=== PATIENT | male | born 1950 | race Caucasian/White ===

== ENCOUNTER 2024-03-08 15:32 | Emergency (ER) | payer OTHER, SELFPAY ==
[2024-03-08 15:46] VITALS: BP 192/111
[2024-03-08 16:23] LABS: % Basophils 0.6 % (0-2); % Eosinophils 0.3 % (0-6); % Immature Granulocytes 0.4 % (0-0.5); % Monocytes 3.8 % (1.7-9.3); % Neutrophils 79.9 % (42.2-75.2); Absolute Basophils 0.1 10^3/uL (0-0.2); Absolute Immature Granulocytes 0.1 10^3/uL (0-0.05); Absolute Lymphocytes 2.1 10^3/uL (1.2-3.4); Absolute Monocytes 0.5 10^3/uL (0.1-0.6); Absolute Neutrophils 11.1 10^3/uL (1.4-6.5); Hematocrit 47.1 % (39.0-52.0); Hemoglobin 16.6 g/dL (13.0-18.0); Mean Corp Hgb Conc. 35.2 g/dL (33.0-37.0); Mean Corpuscular Hgb 30.3 pg (27.0-31.0); Mean Corpuscular Volume 86.1 fL (80.0-94.0); Mean Platelet Volume 8.9 fL (7.4-10.4); Nucleated Red Blood Cells % 0 % (-); Platelet Count 182 10^3/uL (130-400); Red Blood Cell Count 5.47 10^6/uL (4.70-6.10); Red Cell Dist. Width 13.9 % (11.5-14.5); White Blood Cell Count 13.8 10^3/uL (4.8-10.8)
[2024-03-08 16:50] LABS: ALT (SGPT) 20 U/L (0-50); AST (SGOT) 27 U/L (17-59); Albumin 4.7 g/dl (3.5-5.0); Alkaline Phosphatase 82 U/L (38-126); Blood Urea Nitrogen 19 mg/dl (9-20); Calcium 10.4 mg/dl (8.4-10.2); Carbon Dioxide 22 mmol/L (22-30); Chloride 105 mmol/L (98-107); Glucose 117 mg/dl (70-99); Potassium 4.2 mmol/L (3.5-5.1); Sodium 140 mmol/L (135-145); Total Protein 7.1 g/dl (6.3-8.2); eGFR > 60.00
--- NOTE | 2024-03-08 17:17 | ED.GENMED ---
History of Present Illness
General
Chief Complaint: Flank Pain
Source: patient
Exam Limitations: none
Time Seen by Provider: 03/08/24 16:48
Nursing documentation reviewed up to this point in time: agreed with
Travel History
Have you had any contact with someone who has COVID-19?: No
Do you have any symptoms of coronavirus? Fever > 100 degrees, chills, cough, shortness of breath, sore throat, loss of taste or smell, muscle aches, or headache?: No
History of Present Illness
History of Present Illness:
Patient is a 73-year-old male with history of kidney stones presenting for evaluation of acute onset right flank pain. Patient states symptoms started today around 2 PM with sharp pain in his right flank with radiation to his right groin. He was
seen by his primary care physician who was suspicious of a kidney stone. They did perform urinalysis in the office which demonstrated hematuria. He was referred to the emergency department for further evaluation. Patient states that while on his
drive over here the pain seemed to dissipate and is right now denies any discomfort.
Patient does endorse some mild intermittent right flank/low back pain over the past few days which she initially attributed to a muscle strain. He has had a few episodes of diarrhea over the past few days. Patient denies any fever, chills,
dysuria, nausea, vomiting.
Patient does have a history of a kidney stone many years ago that he was able to pass on his own.
Past History
Past History
ED Past Medical History: Other (dvt)
ED Past Surgical History: Tonsilectomy
Social History
Tobacco: Non-smoker
Alcohol: Occasional
Drug: None
Personal:
Living: with family
Employment: Employed
Family History
Family History: Other (son w/ dvt w/ trauma)
Phy Exam
Physical Exam
Physical Exam:
General: In no apparent distress, nontoxic appearing
Vitals: Hypertensive, otherwise vital signs stable; afebrile
HEENT: Atraumatic, normocephalic; pupils equal round and reactive light bilaterally, protecting airway
Neck: appears supple, no JVD
CV: Regular rate and rhythm, heart sounds normal, no evidence of cyanosis
Resp: No evidence of respiratory distress, lungs clear bilaterally
Abd: Soft, nontender in all 4 quadrants, nondistended; no CVA tenderness
Extremities: No deformities
Neuro: alert and oriented x 3; grossly intact
Psych: Normal affect
Skin: Intact, no rashes
Course
Orders/Labs/Results
Orders:
Orders
03/08/24 16:06
CBC/With Diff [Complete Blood Count/With Diff] Urgent
CMP [Comprehensive Metabolic Panel] Urgent
03/08/24 17:12
CT Abd/pel Without Iv Or Oral Urgent
Comment:
Reason For Exam: right flank pain, hematuria
03/08/24 17:42
Urinalysis Reflex To Culture Urgent
Date Specimen was Collected: 03/08/24
Time Specimen was Collected: 17:27
Urine Microscopic Reflex Cult Urgent
Abnormal Lab Results
03/08/24 03/08/24
16:06 17:42
WBC 13.8 H 10^3/uL
(4.8-10.8)
Abs Immat Gran (auto) 0.1 H 10^3/uL
(0-0.05)
Absolute Neuts (auto) 11.1 H 10^3/uL
(1.4-6.5)
Neutrophils % 79.9 H %
(42.2-75.2)
Lymphocytes % 15.0 L %
(20.5-51.1)
Glucose 117 H mg/dl
(70-99)
Calcium 10.4 H mg/dl
(8.4-10.2)
Urine Ketones 2+ A
(Negative)
Ur Occult Blood Reflex 3+ A
(Negative)
Urine RBC 50-60 A /HPF
(0-2)
Urine Bacteria (Reflex) Few A
(Negative)
03/08/24 16:06
03/08/24 16:06
Vital Signs
Initial and Last Documented VS:
Initial Vital Signs
Temp Pulse Resp BP Pulse Ox
97.8 F 74 17 192/111 97
03/08/24 15:46 03/08/24 15:46 03/08/24 15:46 03/08/24 15:46 03/08/24 15:46
Last Documented Vital Signs
Temp Pulse Resp BP Pulse Ox
97.8 F 92 18 167/95 95
03/08/24 15:46 03/08/24 18:27 03/08/24 18:27 03/08/24 18:27 03/08/24 18:27
MDM/Problems Addressed
Differential Diagnosis Includes:
Nephrolithiasis, pyelonephritis, cystitis, constipation, hernia, appendicitis, colitis
MDM/Problems Addressed:
Patient is 73-year-old male presenting for evaluation of acute onset right flank pain earlier today. Sent by PCP to rule out kidney stone. No fever, chills, dysuria. Patient asymptomatic at this time�reports pain resolved while driving over.
Patient is hypertensive, otherwise vital signs stable. He is afebrile. Exam as documented above. Labs obtained in triage show mild leukocytosis to 13.8, otherwise no clinically significant abnormalities. Will check urinalysis, CT scan here.
Based on patient's improvement in pain�it is possible that he may have passed stone. He denies any pain at this time. Will reassess. Given completely benign abdominal exam and absence of nausea, vomiting�feel appendicitis is very unlikely.
Urinalysis positive for blood. Culture will be sent and is pending.
CT shows 3 mm obstructing stone at right distal ureter. Suspect that this was causing patient's symptoms. Kidney function is normal. Given size and location I do believe patient can pass this on his own at home. Will provide Flomax, pain
control, urology follow-up as needed. Urine strainer provided to patient as well. Patient comfortable with this plan. Return precautions discussed. Blood pressure did decrease to 160s over 90s prior to discharge.
Reviewed findings of CT scan with patient, at length. He is aware of AAA and to have this closely monitored by primary care provider.
Chronic conditions affecting care:
History of kidney stone
Acute Exacerbation and/or Progression of Chronic Illness:
Ureterolithiasis
*Radiology
Radiology exam reviewed: preliminary read by ED provider and radiology read reviewed
*Pulse Oximetry
Patient hypoxic: no
*EKG
Interpreted by ED Provider?: NA
*Memorial Designer Interpretation
Rate: Memorial Designer- N/A
*Critical Care Note
Total Time (30-74mins, 75-104mins- exclusive of procedures): Not Applicable
ED Attending Note
-
Portions of this chart may have been created with voice recognition software.� Occasional wrong word or��sound alike� substitutions may have occurred due to the inherent limitations of voice recognition software.
Discharge Plan
Departure
Patient Disposition: Home (Routine Discharge)
Date of Disposition: 03/08/24
Time of Disposition: 18:13
Patient with high blood pressure during this ER visit?: Yes
Condition: Good
Covid-19: Not Applicable
Discharge Problem:
Ureterolithiasis
Instructions: Kidney Stones (DC), BLOOD PRESSURE
Prescriptions:
New
tamsulosin [Flomax] 0.4 mg capsule
0.4 mg PO DAILY Qty: 7 0RF
oxycodone 5 mg tablet
5 mg PO Q6H Qty: 7 0RF
No Action
apixaban [Eliquis] 5 MG tablet
10 mg PO BID Qty: 28 0RF
Rx Instructions:
Take 2 tablets of the 5mg (10 mg) twice a day for the next week
Referrals:
Julien Golden MD [Active] - As needed
UNKNOWN - PT DOES,NOT KNOW [Unknown Provider] -
Activity Restrictions/Additional Instructions:
- Return to the emergency department any high fevers, intractable pain, severe abdominal or flank pain, intractable nausea/vomiting, signs of severe dehydration, worsening current symptoms, or any other concerns
-Prescriptions have been sent to your pharmacy. You should take ibuprofen/Advil as needed for mild discomfort. You can take codon as needed for severe pain. This may cause drowsiness and you should not take prior to driving. You should take the
Flomax daily for the next week or until you pass stone
-Is important stay well-hydrated. You should continue to strain your urine until you pass stone.
-As discussed�you need to follow-up with your primary care provider to review your CT results. You should ensure that the abdominal aortic aneurysm seen on your CT scan is continuously monitored
-Follow-up with urology for further evaluation/managment
Interventions
Interventions:
*Risk Screen - Suicide Last Done: 03/08/24 15:46
*General Assessment Last Done: 03/08/24 15:46
*Neglect/Abuse Screening Last Done: 03/08/24 15:46
*ED COVID-19 Vaccine History Last Done: 03/08/24 15:46
WJ-Sazdtq-Dacclzwqyk Assessment Last Done: 03/08/24 18:27
ED-Male Genitourinary Assessment Last Done: 03/08/24 18:27
Discharge Date and Time
Print Language: CAMEROONIAN
[2024-03-08 18:06] LABS: Urine Albumin Negative (Neg - Trace); Urine Bilirubin Negative (Negative); Urine Character Clear (Clear); Urine Color Yellow; Urine Glucose Negative (Negative); Urine Ketone 2+ (Negative); Urine Leukocyte Negative (Negative); Urine Nitrite Negative (Negative); Urine Occult Blood 3+ (Negative); Urine Urobilinogen Negative (Neg - 1+)
[2024-03-08 18:23] LABS: Urine Calcium Oxalate Crystals Present
[2024-03-08 18:24] LABS: Urine Uric Acid Crystals Present
[2024-03-08 18:26] LABS: Urine Red Blood Cell 50-60 /HPF (0-2)
[2024-03-08 18:27] VITALS: BP 167/95
[2024-03-08 18:27] LABS: Urine Bacteria Few (Negative); Urine Mucus Few; Urine White Cell 0-2 /HPF (0-5)
== END 2024-03-08 18:37 | disposition home or self-care (01) ==
LOC: EMR 15:32
PROVIDERS: Emergency Medicine; EMERGENCY PHYSICIAN Emergency Medicine; FAMILY PHYSICIAN Family Medicine
DX: N13.6 Pyonephrosis (principal); Z87.442 Personal history of urinary calculi
CPT/HCPCS: 99284; 74176; 80053; 81003; 81015; 85025

== ENCOUNTER → 2024-04-25 09:56 | Outpatient (REF) | payer OTHER, SELFPAY | LOC: HWRAD 09:56 | PROVIDERS: ATTENDING PHYSICIAN Specialist; FAMILY PHYSICIAN Family Medicine | DX: N20.0 Calculus of kidney (principal); N20.1 Calculus of ureter | CPT/HCPCS: 74018 ==

== ENCOUNTER → 2024-10-31 14:37 | Outpatient (REF) | payer OTHER, SELFPAY | LOC: RAD 14:37 | PROVIDERS: ATTENDING PHYSICIAN Family Medicine | DX: M79.661 Pain in right lower leg (principal) | CPT/HCPCS: 93971 ==

== ENCOUNTER 2024-11-01 18:12 | Inpatient (IN) | payer OTHER, SELFPAY ==
[2024-11-01] VITALS (9 sets, daily range): BP systolic 109–152; BP diastolic 71–99; BMI 26.6
--- NOTE | 2024-11-01 13:45 | EDRN ---
Received patient on stretcher. Patient stated that he was diagnosed yesterday with a DVT in his right leg and was started on Eliquis. Patient with c/o SOB this morning. Denies c/o chest pain.
[2024-11-01 14:10] LABS: % Basophils 0.9 % (0-2); % Immature Granulocytes 0.3 % (0-0.5); % Lymphocytes 29.3 % (20.5-51.1); % Monocytes 6.1 % (1.7-9.3); % Neutrophils 61.4 % (42.2-75.2); Absolute Basophils 0.1 10^3/uL (0-0.2); Absolute Eosinophils 0.1 10^3/uL (0-0.7); Absolute Monocytes 0.4 10^3/uL (0.1-0.6); Absolute Neutrophils 4.3 10^3/uL (1.4-6.5); Hematocrit 47.4 % (39.0-52.0); Hemoglobin 16.1 g/dL (13.0-18.0); Mean Corpuscular Hgb 30.5 pg (27.0-31.0); Mean Corpuscular Volume 89.8 fL (80.0-94.0); Nucleated Red Blood Cells % 0 % (-); Platelet Count 226 10^3/uL (130-400); Red Blood Cell Count 5.28 10^6/uL (4.70-6.10); Red Cell Dist. Width 13.1 % (11.5-14.5); White Blood Cell Count 6.9 10^3/uL (4.8-10.8)
[2024-11-01 14:34] LABS: Blood Urea Nitrogen 19 mg/dl (9-20); Glucose 100 mg/dl (70-99); Sodium 141 mmol/L (135-145); eGFR > 60.00
[2024-11-01 14:35] LABS: ALT (SGPT) 16 U/L (0-50); AST (SGOT) 26 U/L (17-59); Albumin 4.3 g/dl (3.5-5.0); Alkaline Phosphatase 70 U/L (38-126); Calcium 9.4 mg/dl (8.4-10.2); Carbon Dioxide 24 mmol/L (22-30); Chloride 108 mmol/L (98-107); Potassium 4.4 mmol/L (3.5-5.1); Total Bilirubin 0.7 mg/dl (0.2-1.3); Total Protein 6.7 g/dl (6.3-8.2)
--- NOTE | 2024-11-01 14:35 | ED.GENMED ---
History of Present Illness
General
Chief Complaint: Breathing Problem
Source: patient
Exam Limitations: none
Time Seen by Provider: 11/01/24 13:24
Nursing documentation reviewed up to this point in time: agreed with
History of Present Illness
History of Present Illness:
pt is a 74 y/o M
remote DVT provoked after an injury/immobiolzation
had covid a few weeks ago and then got swelling to RLE and yesterday had outpatient US showing nonocclusive thrombus in R common feb vein to R posterior tibial veins
syas miranda the has also had some intermittent sob the past week as well
he actually feels better today than other days
no chest pain, LALA, syncope, vomiting, fever
pt's pcp started eliquis yesterday and pt has had 3 doses
no color change tothe leg, no numbness/tingling/weakness, cold foot
Past History
Past History
ED Past Medical History: Other (dvt)
ED Past Surgical History: Tonsilectomy
Social History
Tobacco: Non-smoker
Alcohol: Occasional
Drug: None
Personal:
Living: with family
Employment: Employed
Family History
Family History: Other (son w/ dvt w/ trauma)
Review of Systems
Review of Systems
Allergies reviewed?: Yes
All Other Systems: Not applicable
Phy Exam
Physical Exam
Physical Exam:
GENERAL: Alert , in no apparent distress
EYE: pupils equal and reactive
NECK: Supple
ENT: o/p clr, mmm.
CARDIAC: Regular rate and rhythm .no murmur
LUNGS: Clear breath sounds bilaterally, no acute respiratory distress, no wheezes/rales/rhonchi
ABDOMEN: Soft, without focal tenderness, no r/g, no cvat, normal bowel sounds
NEUROLOGICAL: Alert and oriented, no focal neuro deficits
SKIN: Warm and dry, skin intact.
MUSCULOSKELETAL: mod RLE edema nontender, normal pulse normal temperature, well perfused.
PSYCH: Normal and appropriate interaction.
Scores
Heart Failure Risk
Heart Failure Risk Score: Not Applicable
Course
Orders/Labs/Results
Orders:
Orders
11/01/24 13:46
Electrocardiogram (*1) Stat
Reason for Study: Other
Other Reason for Exam: chest pain
CT Chest Pe Study Urgent
Comment:
Reason For Exam: R DVT yesterday; sob;
EKG- Treatment ONCE
11/01/24 13:59
Complete Blood Count/With Diff Urgent
Comprehensive Metabolic Panel Urgent
Troponin I Urgent
11/01/24 15:58
Heparin 6,800 units IV NOW STA
11/01/24 15:59
PTT Urgent
Comment: Obtain baseline before beginning heparin infusion if not already collected
Nursing to Place Non Medication Order As Directed
Physician Order: PTT 6 hours after initial start of Heparin infusion
11/01/24 16:00
Heparin 44278 Units/250 ml 25,000 units in 250 ml IV PER PROTOCOL
Weight to be used for heparin protocol in kilograms (kg):: 85.1
Protocol:: DVT/PE
PTT Goal Range to be used:: PTT 73 to 111 seconds
Order type:: Initial
INITIAL Infusion Dose (UNITS/KG/hr) & then follow protocol:: 18 units/kg/hr
Infusion Dose in UNITS/hr & then follow protocol (UNITS/hr):: 1,500
INFUSION RATE in mL/hr & then follow protocol (mL/hr):: 15
For DVT/PE algorithm, re-bolus for low PTT?: Yes
PTT less than or equal to 64 seconds:: Re-bolus 80 units/kg (max 10,000units). Increase by 300 units/hr
(+ 3mL/hr)
PTT 64.1 to 72.9 seconds:: Re-bolus 40 units/kg (max 5,000 units). Increase by 200 units/hr
(+ 2mL/hr)
PTT 73 to 111 seconds:: Target Range. No change in rate.
PTT 111.1 to 130.9 seconds:: Decrease rate by 200 units/hr (- 2 mL/hr)
PTT 131 to 199.9 seconds:: HOLD for 1 hr. Then decrease by 300 units/hr (- 3mL/hr)
PTT greater than or equal to 200 seconds:: HOLD for 2 hrs & Notify Provider. Then decrease by 300 units/hr
(- 3mL/hr)
Lab follow-up:: Each change, PTT q6h until 2 consecutive are therapeutic. Then
PTT daily.
11/01/24 16:05
Add On- LAB Urgent
Tests Added?: BNP
11/01/24 16:08
Heparin 3,400 units IV PRN PRN
Heparin 6,800 units IV PRN PRN
Abnormal Lab Results
11/01/24
13:59
Chloride 108 H mmol/L
(98-107)
Glucose 100 H mg/dl
(70-99)
11/01/24 13:59
11/01/24 13:59
Vital Signs
Initial and Last Documented VS:
Initial Vital Signs
Temp Pulse Resp BP Pulse Ox
36.4 C 86 16 152/88 97
11/01/24 12:05 11/01/24 12:05 11/01/24 12:05 11/01/24 12:05 11/01/24 12:05
Last Documented Vital Signs
Temp Pulse Resp BP Pulse Ox
36.4 C 70 17 123/87 100
11/01/24 12:05 11/01/24 15:00 11/01/24 15:00 11/01/24 15:00 11/01/24 14:00
MDM/Problems Addressed
Differential Diagnosis Includes:
PE, dvt
MDM/Problems Addressed:
room [address] ernesto negron 74 y/o M
covid a few weeks ago
1 week RLE swelling, mild sob worse with exertion
outpatient US R common fem vein dvt
on eliquis since yesterday
but sent in for PE study and has R main pulm artery PE with mild R heart strain
hemodynamically stable
trop normal
d/w pulnonary : peter; heparinize; no IR/.urgent thrombectomy because pt is stable.
admit to hospitalist
*Critical Care Note
Total Time (30-74mins, 75-104mins- exclusive of procedures): Not Applicable
ED Attending Note
-
Portions of this chart may have been created with voice recognition software.� Occasional wrong word or��sound alike� substitutions may have occurred due to the inherent limitations of voice recognition software.
Discharge Plan
Departure
Patient Disposition: Admit
Date of Disposition: 11/01/24
Time of Disposition: 15:57
Admit to: IMU
Presentation/result/management discussed w/ accepting MD/DO: Hospitalist
Covid-19: Not Applicable
Discharge Problem:
Pulmonary embolism
Prescriptions:
No Action
Eliquis 5 MG tablet
10 mg PO BID Qty: 28 0RF
Rx Instructions:
Take 2 tablets of the 5mg (10 mg) twice a day for the next week
ascorbic acid (vitamin C) [Vitamin C] 500 mg Tablet
500 mg PO DAILY
Referrals:
Janak Little MD [Family Provider] -
Interventions
Interventions:
*Risk Screen - Suicide Last Done: 11/01/24 12:05
*General Assessment Last Done: 11/01/24 13:45
*Neglect/Abuse Screening Last Done: 11/01/24 12:05
ED- Fall Risk Assessment Last Done: 11/01/24 13:45
*ED COVID-19 Vaccine History Last Done: 11/01/24 13:45
ED- Cardiac Assessment Last Done: 11/01/24 13:45
ED- Pulmonary Assessment Last Done: 11/01/24 13:45
Discharge Date and Time
Print Language: UPPER SORBIAN
[2024-11-01 14:42] LABS: Troponin I 0.018 ng/ml
[2024-11-01] MEDS: HEPARIN 6800 UNITS IV (16:20)
[2024-11-01] MEDS: HEPARIN 25000 UNITS/250 ML IV (16:21)
[2024-11-01 16:55] LABS: APTT 34.7 Sec (23.4-35.0)
--- NOTE | 2024-11-01 16:59 | HPS.HSE ---
Addendum entered and electronically signed by Pauline Tomas DO 11/01/24 19:19:
The patient is seen and examined. I have reviewed the patient with Honey, and agree with her history and physical, assessment and plan of care as per below with following additions:
The patient has a history of DVT, treated for 2 months on oral anticoagulants.
No Family history of DVT/PE that he knows about
Social hx: regional dedicated truck driver, sitting for long periods of time
VSS/AF, no hypoxia
Cards no m/r/r, RRR
Lungs CTA b/l no w/r/r
Neuro no focal deficits
Abd soft nt/nd, normal bs
Labs reviewed
CT: Positive for pulmonary emboli. Large near occlusive thrombus within the right main pulmonary artery extending into both the upper and lower lobe segmental branches. Additional filling defect noted within the proximal left lower lobe pulmonary
arteries. RV LV ratio greater than 1 suggesting right heart strain.
Echo pending
Cont Hep gtt
Currently hemodynamically stable, continue to monitor hemodynamics closely
Original Note:
Family Physician
-
Family Physician: Janak Little
Chief Complaint
-
dvt
History of Present Illness
74 y/o M with remote DVT provoked after an injury/immobilization,had covid a few weeks ago and then got swelling to RLE, sob and yesterday had outpatient US showing nonocclusive thrombus in R common feb vein to R posterior tibial veins. CT obtained
today with impression of PE. patient denied chest pain, LALA, syncope, vomiting, fever.pt's pcp started eliquis yesterday and pt has had 3 doses. denied MUNOZ, dizzy or syncope. denied abdominal pain,n,v,d. denied dysuria or hematuria.
patient was started on heparin. admitting for further management.
Medical History
Past Medical History
Past Medical History: Reports Other
Additional Past Medical History:
Left leg DVT
Colon polyps
Diverticulosis
Past Surgical History: Reports Other
Additional Past Surgical History:
Tonsillectomy
Social History
Tobacco: Non-smoker
Alcohol: Occasional
Drug: None
Personal:
Living: With Family
Family History
Family History: Not pertinent
Allergies / Home Medications
Allergies reflects when Allergies were last updated in [facility].
Home Medications with original date entered in [facility]
Allergy/Medication List:
Allergies
Allergy/AdvReac Type Severity Reaction Status Date / Time
amoxicillin Allergy Unknown Verified 08/05/22 21:14
Home Medications
apixaban 5 mg tablet (Eliquis) 10 mg (2 x 5 mg) PO BID #28 tabs 03/10/17
ascorbic acid (vitamin C) 500 mg tablet (Vitamin C) 500 mg PO DAILY 11/01/24
Review of Systems
-
Constitutional: Reports No Symptoms
EENT: Reports No Symptoms
Respiratory: Reports Trouble Breathing
Cardiac: Reports No Symptoms
Abdomen/GI: Reports No Symptoms
: Reports No Symptoms
Musculoskeletal: Reports Edema (right Le edema)
Skin: Reports No Symptoms
Neurological: Reports No Symptoms
Endocrine: Reports No Symptoms
Hematologic/Lymphatic: Reports No Symptoms
Psych: Reports No Symptoms
Physical Exam
Vital Signs
Vital Signs
Temp Pulse Resp BP Pulse Ox
97.5 F 70 17 123/87 100
11/01/24 12:05 11/01/24 15:00 11/01/24 15:00 11/01/24 15:00 11/01/24 14:00
Physical Exam
General: Well Developed, Well Nourished and No Apparent Distress
HEENT: NormoCephalic, Moist mucous membranes and Atraumatic
Respiratory: Clear
Cardiac: S1/S2 and Regular Rhythm; No Murmur or Rub
GI: Soft, Non Tender, Non Distended and Normal Bowel Sounds; No Organomegaly
Rectal: Deferred by Provider
Musculoskeletal: No Clubbing, No Cyanosis and Other (right LE edema)
Skin: No Rash
Neuro: AO x 3 and Nonfocal/grossly intact
Psych: Calm
Laboratory Results
-
11/01/24 13:59
11/01/24 13:59
Laboratory Results
Total Bilirubin 0.7 mg/dl (0.2-1.3) 11/01/24 13:59
AST 26 U/L (17-59) 11/01/24 13:59
ALT 16 U/L (0-50) 11/01/24 13:59
Alkaline Phosphatase 70 U/L (38-126) 11/01/24 13:59
Troponin I 0.018 ng/ml 11/01/24 13:59
Data Reviewed
-
CT Scan: Report Reviewed by me
Lab Data: Labs Reviewed by me
Impression/Plan
-
# Right lower extremity swelling/short of breath likely from pulmonary embolism
-IV heparin continued
-Chest CT with impression of Positive for pulmonary emboli. Large near occlusive thrombus within the right main pulmonary artery extending into both the upper and lower lobe segmental branches. Additional filling defect noted within the proximal
left lower lobe pulmonary arteries. RV LV ratio greater than 1 suggesting right heart strain.
-obtain ECHO
-pulmonary consulted
#CODE status
-full code
[2024-11-01 17:17] LABS: NT-proBNP 107 pg/ml
--- NOTE | 2024-11-01 18:35 | PTCARENOTE ---
Received pt from ED via stretcher. AAOX3. Pt ambulated to bed independently. Daughter at bedside. VSS. Heparin gtt running at 1500 unit/hr, 15 mL/hr. Will inform nightshift RN.
--- NOTE | 2024-11-01 18:37 | PTCARENOTE ---
Received pt from ED via stretcher. AAOX3. Pt ambulated to bed independently. hospital monitor placed. Daughter at bedside. VSS. Heparin gtt running at 1500 unit/hr, 15 mL/hr. Will inform nightshift RN.
--- NOTE | 2024-11-01 18:40 | EDRN ---
Patient taken to room 336-2 on stretcher on monitor with Heparin drip infusing at 1500units/HR.
[2024-11-01 23:10] LABS: APTT 119.2 Sec (23.4-35.0)
[2024-11-02 03:46] VITALS: BP 107/63
[2024-11-02 05:56] LABS: APTT 101.6 Sec (23.4-35.0)
[2024-11-02 06:21] LABS: Hematocrit 44.3 % (39.0-52.0); Hemoglobin 14.6 g/dL (13.0-18.0); Mean Corpuscular Hgb 30.2 pg (27.0-31.0); Mean Corpuscular Volume 91.5 fL (80.0-94.0); Mean Platelet Volume 8.9 fL (7.4-10.4); Platelet Count 211 10^3/uL (130-400); Red Blood Cell Count 4.84 10^6/uL (4.70-6.10); Red Cell Dist. Width 12.8 % (11.5-14.5); White Blood Cell Count 6.8 10^3/uL (4.8-10.8)
[2024-11-02 08:20] VITALS: BP 127/90
[2024-11-02] MEDS: HEPARIN 25000 UNITS/250 ML IV (10:12)
--- NOTE | 2024-11-02 10:48 | CON.PUL ---
Consultation
Consultation Request
Date/Time Consultation Requested: 11/02/24
Date/Time Consultation Performed: 11/02/24
Performing Provider: Jw
Reason for Consultation: PE
Medical History
-
History of Present Illness:
Patient is a 74-year-old male with previous history of DVT 10 years ago, presenting to ER with right lower extremity swelling and shortness of breath. He underwent outpatient ultrasound demonstrating nonocclusive right lower extremity DVT and
placed on Eliquis. CT obtained today demonstrating PE, he was sent to the ER following this result by his PCP. He was started on heparin drip. Denies any active complaints at this time. He notes that he had completed about 6 months of Eliquis
during his previous DVT.
Denies any prior history of lung disease. He did have recent episode of COVID that may have precipitated this current event.
Past Medical History
Past Medical History: Other (see list below)
Social History
Tobacco: Non-smoker
Alcohol: None
Drug: None
Family History
Family History: Reviewed & Not Pertinent
Allergies / Home Medications
Allergies
Allergy/AdvReac Type Severity Reaction Status Date / Time
amoxicillin Allergy Unknown Verified 08/05/22 21:14
Home Medications
�Medication �Instructions �Recorded �Confirmed �Last Taken �Type
apixaban 5 mg tablet (Eliquis) 10 mg (2 x 5 mg) PO BID #28 tabs 03/10/17 11/01/24 Unknown Rx
ascorbic acid (vitamin C) 500 mg 500 mg PO DAILY Supplement 11/01/24 11/01/24 Unknown History
tablet (Vitamin C)
Review of Systems
-
History Source: Patient
All other systems: Negative unless noted
Vitals / Labs / Diagnostic Testing
Vital Signs
Temp Pulse Resp BP Pulse Ox
98.1 F 80 16 127/90 95
11/02/24 08:20 11/02/24 08:20 11/02/24 08:20 11/02/24 08:20 11/02/24 08:20
Lab Data
11/02/24 05:36
11/01/24 13:59
Laboratory Results
11/01/24 11/01/24 11/01/24
13:55 22:18 22:50
APTT 34.7 Cancelled 119.2 H
11/02/24
05:36
APTT 101.6 H
Diagnostic Testing:
Physical Exam
-
HEENT: Normocephalic, Anicteric and Moist Mucous Membranes
Cardiovascular: S1/S2 and Regular Rhythm
Respiratory: Clear and Non-Labored Respirations
GI: Soft, Non Distended and Non Tender
Neurology: Awake, Alert, Oriented and No Motor Deficits
Skin: Warm, Dry and Good Color
General: Comfortable and Other (NAD)
Assessment
-
Patient is a 74-year-old male with previous history of DVT 10 years ago, presenting to [facility] ER with right lower extremity swelling and shortness of breath. He underwent outpatient ultrasound demonstrating nonocclusive right lower extremity DVT and
placed on Eliquis. CT obtained today demonstrating PE, he was sent to the ER following this result by his PCP. He was started on heparin drip. We are consulted for evaluation.
Provoked PE
RLE DVT
Recent history of COVID
Prior history of DVT
Prolonged sitting at work
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
Left leg DVT
Colon polyps
Diverticulosis
Tonsillectomy
Plan
No significant hypoxemia noted on arrival, O2 herson >90%
Denies any prior history of lung disease.
He did have recent episode of COVID that may have precipitated this current event.
Prior DVT about 10 years ago, completed 6 mos of Eliquis
CXR/CT obtained indicating near occlusive thrombus within the right main pulmonary artery extending into both upper and lower segmental branches, left lower lobe pulmonary arteries with filling defect
Duplex with right lower extremity DVT
Other imaging reviewed --prior duplex in 2017 showing left lower extremity DVT
proBNP and troponin negative, no evidence of right heart strain as noted on CT report
ECHO results reviewed as well and stable
Will need outpatient pulmonary evaluation in our office including PFTs and 6MWT
Reviewed with patient, he is agreeable
We discussed the expectation of lifelong anticoagulation as well
CM consult for OAC transition, has tolerated Eliquis in the past
I would transition today and if tolerating, by tomorrow proceed with discharge planning
We will follow
Diagnostic Data
CXR
CT CHEST 11/01/24- . Positive for pulmonary emboli. Large near occlusive thrombus within the right main pulmonary artery extending into both the upper and lower lobe segmental branches. Additional filling defect noted within the proximal left
lower lobe pulmonary arteries. RV LV ratio greater than 1 suggesting right heart strain.
Duplex 10/31/24- Nonocclusive thrombus extending from the right common femoral vein to the right posterior tibial veins.
03/09/17- . Acute left lower extremity occlusive deep vein thrombosis in the thigh and calf.
ECHO 11/02/24-. Normal left ventricular size and systolic function without regional wall motion abnormalities. Mild concentric left ventricular hypertrophy. Estimated left nuclear ejection fraction is 60 to 65% by visual estimation, 63% by
Nava's method. Diastolic function is indeterminate. 2. Mildly enlarged right ventricular size with normal right ventricular systolic function.
3. No significant valvular abnormalities. 4. No pericardial effusion. 5. Mildly dilated aortic root measuring 3.9 cm at the sinuses of Valsalva and dilatation of the ascending aorta measuring at 4.1 cm.
PFT
Reports and relevant images were personally reviewed.
Total time spent on this consultation __75__ minutes which includes review of history, physical exam, medications, laboratory data, personal review of imaging, extensive review of outpatient records, discussion with care team and respiratory therapy.
[2024-11-02 11:25] VITALS: BP 125/84
--- NOTE | 2024-11-02 12:52 | W.PN.HOSP.TC ---
Today's Communication/Plan
-
c/w IV heparin gtt
f/w echo
Assessment / Plan
Assessment / Plan
Physical Exam
General: Well Developed, Well Nourished and No Apparent Distress
HEENT: Normocephalic, Moist mucous membranes and Atraumatic
Respiratory: Clear
Cardiac: S1/S2 and Regular Rhythm; No Murmur or Rub
GI: Soft, Non Tender, Non Distended and Normal Bowel Sounds; No Organomegaly
Rectal: Deferred by Provider
Musculoskeletal: No Clubbing, No Cyanosis and Other (right LE edema)
Skin: No Rash
Neuro: AO x 3 and Nonfocal/grossly intact
Psych: Calm
# Bilateral PE. CT showed Large near occlusive thrombus within the right main pulmonary artery extending into both the upper and lower lobe segmental branches, additional filling defect noted within the proximal left lower lobe pulmonary arteries.
RV LV ratio greater than 1 suggesting right heart strain.
-IV heparin continued for at least 48 hours.
-obtain ECHO
- Negative troponin. No chest pain
- No hypoxia.
-pulmonary consulted
# Incidental findings
Multiple hepatic cysts, including a lobulated cyst within the left lobe measuring up to 2.7 cm. Bilateral punctate renal calculi.
Normal LFTs, no abdominal pain or jaundice.
Normal renal function, no renal colic or gross hematuria.
#CODE status
-full code
Total time spent to see the patient on the floor, examine the patient, review data and lab results, discuss treatment plan with patient, nursing staff around 55 minutes.
Anticipated Discharge: 24 - 48 hours
Subjective/Interval History
-
Date of Service: November 02, 2024
No chest pain
No sob
Objective Data
-
Labs:
Laboratory Results
11/02/24 11/02/24
05:36 12:04
WBC 6.8
Hgb 14.6
Hct 44.3
Plt Count 211
APTT 101.6 H Pending
Vital Signs:
Vital Signs
Temp Pulse Resp BP Pulse Ox
97.4 F 75 16 125/84 95
11/02/24 11:25 11/02/24 11:25 11/02/24 11:25 11/02/24 11:25 11/02/24 08:20
I&O
11/01/24 11/02/24 11/03/24
06:59 06:59 06:59
Intake Total 480 / 480
Balance 480 / 480
[2024-11-02 12:59] LABS: APTT 84.1 Sec (23.4-35.0)
[2024-11-02 15:05] VITALS: BP 121/77
--- NOTE | 2024-11-02 16:06 | CM ---
Alert awake oriented patient who lives with his Alma Rosa who lives in a 2 story home with 3 step to enter and 13 steps to bed and bathroom. He is independent in driving and in all activities of daily living.He uses no adaptive devices. He was
offered VN he declined need.He is currently on Heparin Gtt. He said he would be on Eliquis at [place]. Free Eliquis coupon given .
No VN hx / No SNF history
Pharmacy [facility] [address] Janak Little
PLAN Home Declined VN
[2024-11-02 19:36] VITALS: BP 128/80
[2024-11-02 23:56] VITALS: BP 118/74
[2024-11-03 03:36] VITALS: BP 125/86
--- NOTE | 2024-11-03 03:57 | DOWNTIME ---
There was a [employer] Client [employer] Downtime on 11/03/2024 from 0200 to 11/03/2024 at 0325 . Downtime documentation of patient's care, including medication administrations, has been reconciled in the electronic record per guidelines. Refer to the
patient's paper chart under the miscellaneous tab to see printed paper medication records and downtime forms.
[2024-11-03 05:56] LABS: Hematocrit 45.3 % (39.0-52.0); Mean Corp Hgb Conc. 33.1 g/dL (33.0-37.0); Mean Corpuscular Hgb 30.4 pg (27.0-31.0); Mean Corpuscular Volume 91.9 fL (80.0-94.0); Mean Platelet Volume 8.9 fL (7.4-10.4); Platelet Count 215 10^3/uL (130-400); Red Blood Cell Count 4.93 10^6/uL (4.70-6.10); White Blood Cell Count 6.8 10^3/uL (4.8-10.8)
[2024-11-03 06:03] LABS: APTT 82.6 Sec (23.4-35.0)
[2024-11-03] MEDS: HEPARIN 25000 UNITS/250 ML IV (07:13)
[2024-11-03 08:07] VITALS: BP 128/108
--- NOTE | 2024-11-03 10:09 | W.PN.HOSP.TC ---
Today's Communication/Plan
-
Discharge
Assessment / Plan
Assessment / Plan
Physical Exam
General: Well Developed, Well Nourished and No Apparent Distress
HEENT: Normocephalic, Moist mucous membranes and Atraumatic
Respiratory: Clear
Cardiac: S1/S2 and Regular Rhythm; No Murmur or Rub
GI: Soft, Non Tender, Non Distended and Normal Bowel Sounds; No Organomegaly
Rectal: Deferred by Provider
Musculoskeletal: No Clubbing, No Cyanosis and Other (right LE edema)
Skin: No Rash
Neuro: AO x 3 and Nonfocal/grossly intact
Psych: Calm
# Bilateral PE. CT showed Large near occlusive thrombus within the right main pulmonary artery extending into both the upper and lower lobe segmental branches, additional filling defect noted within the proximal left lower lobe pulmonary arteries.
RV LV ratio greater than 1 suggesting right heart strain.
-IV heparin continued for at least 48 hours.
- Echo showed LVEF 60-65%, mild lVH, normal RV function, mild dilatation, no valvular heart disease.
- Negative troponin. No chest pain
- No hypoxia.
-pulmonary consulted
# Incidental findings
Multiple hepatic cysts, including a lobulated cyst within the left lobe measuring up to 2.7 cm. Bilateral punctate renal calculi.
Normal LFTs, no abdominal pain or jaundice.
Normal renal function, no renal colic or gross hematuria.
#CODE status
-full code
Total dc time spent to see the patient on the floor, examine the patient, review data and lab results, discuss discharge plan with patient, nursing staff around 65 minutes.
Anticipated Discharge: Today
Subjective/Interval History
-
Date of Service: November 03, 2024
No chest pain
No sob
No hypoxia
Walks without sob or distress
He would like to go home
Objective Data
-
Labs:
Laboratory Results
11/03/24
05:16
WBC 6.8
Hgb 15.0
Hct 45.3
Plt Count 215
APTT 82.6 H
Vital Signs:
Vital Signs
Temp Pulse Resp BP Pulse Ox
97.9 F 71 17 128/108 93
11/03/24 08:07 11/03/24 08:07 11/03/24 08:07 11/03/24 08:07 11/03/24 08:07
I&O
11/02/24 11/03/24 11/04/24
06:59 06:59 06:59
Intake Total 480 / 480 1296 / 1296
Balance 480 / 480 1296 / 1296
[2024-11-03 11:47] VITALS: BP 133/77
--- NOTE | 2024-11-03 13:15 | CM ---
MD entered order for discharge.
Spoke with pt he said he was ready for discharge.
His dgt Miriam will drive him home .
Offered VN he declined need.
Eliquis coupon given to pt.
PLAN Home no needs
--- NOTE | 2024-11-03 14:43 | W.PN.PUL3 ---
Today's Communication / Plan
-
Doing well today, stable on RA
Transition IV heparin to OAC per team
Outpatient pulmonary FU recommended, info left in chart
Discharge planning per team
Assessment
-
Patient is a 74-year-old male with previous history of DVT 10 years ago, presenting to ER with right lower extremity swelling and shortness of breath. He underwent outpatient ultrasound demonstrating nonocclusive right lower extremity DVT and
placed on Eliquis. CT obtained today demonstrating PE, he was sent to the ER following this result by his PCP. He was started on heparin drip. We are consulted for evaluation.
Provoked PE
RLE DVT
Recent history of COVID
Prior history of DVT
Prolonged sitting at work
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
Left leg DVT
Colon polyps
Diverticulosis
Tonsillectomy
Plan
No significant hypoxemia noted on arrival, O2 herson >90%
Denies any prior history of lung disease.
He did have recent episode of COVID that may have precipitated this current event.
Prior DVT about 10 years ago, completed 6 mos of Eliquis
CXR/CT obtained indicating near occlusive thrombus within the right main pulmonary artery extending into both upper and lower segmental branches, left lower lobe pulmonary arteries with filling defect
Duplex with right lower extremity DVT
Other imaging reviewed --prior duplex in 2017 showing left lower extremity DVT
proBNP and troponin negative, no evidence of right heart strain as noted on CT report
ECHO results reviewed as well and stable
Will need outpatient pulmonary evaluation in our office including PFTs and 6MWT
Reviewed with patient, he is agreeable
We discussed the expectation of lifelong anticoagulation as well
CM consult for OAC transition, has tolerated Eliquis in the past
Transitioning to Eliquis
Discharge planning today per team
Diagnostic Data
CXR
CT CHEST 11/01/24- 1. Positive for pulmonary emboli. Large near occlusive thrombus within the right main pulmonary artery extending into both the upper and lower lobe segmental branches. Additional filling defect noted within the proximal left
lower lobe pulmonary arteries. RV LV ratio greater than 1 suggesting right heart strain.
Duplex 10/31/24- Nonocclusive thrombus extending from the right common femoral vein to the right posterior tibial veins.
03/09/17- 1. Acute left lower extremity occlusive deep vein thrombosis in the thigh and calf.
ECHO 11/02/24-1. Normal left ventricular size and systolic function without regional wall motion abnormalities. Mild concentric left ventricular hypertrophy. Estimated left nuclear ejection fraction is 60 to 65% by visual estimation, 63% by
Nava's method. Diastolic function is indeterminate. 2. Mildly enlarged right ventricular size with normal right ventricular systolic function.
3. No significant valvular abnormalities. 4. No pericardial effusion. 5. Mildly dilated aortic root measuring 3.9 cm at the sinuses of Valsalva and dilatation of the ascending aorta measuring at 4.1 cm.
PFT
Reports and relevant images were personally reviewed.
Total time spent on this encounter __35__ minutes which includes review of history, physical exam, medications, laboratory data, personal review of imaging, extensive review of outpatient records, discussion with care team and respiratory therapy.
Subjective Data
-
Date of Service:
Date of Service: November 03, 2024
Chief Complaint: Pulmonary Follow Up
Subjective:
Doing well, no new complaints
Stable on RA
Ready to go home
Objective Data
Data Reviewed
Vital Signs / I&O / Oxygen:
Vital Signs
Temp Pulse Resp BP Pulse Ox
97.6 F 69 16 133/77 93
11/03/24 11:47 11/03/24 11:47 11/03/24 11:47 11/03/24 11:47 11/03/24 11:47
Intake and Output
11/02/24 11/03/24 11/04/24
06:59 06:59 06:59
Intake Total 480 / 480 1296 / 1296
Balance 480 / 480 1296 / 1296
SaO2 93
Physical Exam
General: Comfortable, Good Appetite and Other (NAD)
HEENT: Normocephalic, Anicteric and Moist Mucous Membranes
Cardiovascular: S1-S2 and Regular Rhythm
Respiratory: Clear and Non-Labored Respirations
GI: Soft, Non Distended and Non Tender
Neurology: Awake, Alert, Oriented and No Motor Deficits
Skin: Warm, Dry and Good Color
Labs/Micro/Reports
Lab Data
11/03/24 05:16
11/01/24 13:59
Laboratory Results
11/03/24
05:16
APTT 82.6 H
--- NOTE | 2024-11-03 15:27 | W.DCSUMMARY ---
Discharge Summary
Discharge Data
Date of Admission: 11/01/24
Date of Discharge: 11/03/24
-
Pending Results: No
Hospital Course
74 years old male presented with right lower extremity swelling and shortness of breath. He underwent an outpatient ultrasound that showed nonocclusive DVT and was placed on Eliquis by his primary care physician. Patient reported he started to
have shortness of breath with no significant hypoxemia on arrival. Scan of the chest showed large near occlusive thrombus within the right main pulmonary artery extending into both the upper and lower lobe segmental branches. Additional filling
defect noted within the proximal left lower lobe pulmonary arteries. Troponin was negative. Patient was admitted to the hospital received intravenous heparin for 48 hours and then he was transitioned to oral anticoagulation therapy, Eliquis.
Patient chose Eliquis because he had it before when he had deep venous thrombosis in his lower extremity many years ago. Patient was counseled regarding potential side effects and benefits of anticoagulation, he verbalized understanding.
Echocardiogram showed left ventricular ejection fraction of 60 to 65%, mild LVH, normal RV function, mildly dilated right ventricle with normal function, no significant valvular heart disease. Echocardiogram showed mildly dilated aortic root
measuring 3.9 cm at the sinuses of Valsalva and dilatation of the ascending aorta measuring at 4.1 cm. Patient denies chest pain or palpitations. He was advised to follow-up with cold meat chef after discharge. Scan of the chest also showed
incidental finding of multiple hepatic cysts, including a lobulated cyst within the left lobe measuring up to 2.7 cm. Bilateral punctate renal calculi. Patient did not have abdominal pain. Normal liver function test. Denied gross hematuria.
Patient remained hemodynamic stable. He did not have hypoxia and was able to ambulate without shortness of breath. Patient was discharged home to follow-up with his primary care doctor in the office. He was also advised to follow-up with
pulmonary doctor and information was given to him.
Discharge Plan
-
Patient Disposition: Home (Routine Discharge)
Discharge Diagnosis/Procedures: Large near occlusive thrombus within the right main pulmonary artery extending into both the upper and lower lobe segmental branches. Additional filling defect noted within the proximal left lower lobe pulmonary
arteries.
Incidental findings in CT: Multiple hepatic cysts, including a lobulated cyst within the left lobe measuring up to 2.7 cm. Bilateral punctate renal calculi.
Take Eliquis 10 mg twice a day for 7 days ( 14 doese as total) then 5 mg twice a day.
Incidental finding on Echo of heart: Mildly dilated aortic root measuring 3.9 cm at the sinuses of Valsalva and
dilatation of the ascending aorta measuring at 4.1 cm. We recommend follow up with cold meat chef.
Diet: As tolerated
Referrals:
Janak Little MD [Family Provider] - in one to two weeks
Kaylene Escalera DO [Active] - in four to six weeks (PFTs)
Aisha Barnard MD [Active] - in two to three weeks (Call and make appointment with a cold meat chef for follow-up of echo findings )
Prescriptions:
Continued
Eliquis 5 MG tablet
10 mg PO BID Qty: 28 0RF
Rx Instructions:
Take 2 tablets of the 5mg (10 mg) twice a day for the next week
ascorbic acid (vitamin C) [Vitamin C] 500 mg Tablet
500 mg PO DAILY
Discharge Orders:
Discharge Patient (As Directed); Ordered 11/03/24
Ordered By: Milana Cook
Discharge Date and Time
Print Language: [place]
[2024-11-03 16:01] VITALS: BP 132/88
[2024-11-03] MEDS: ELIQUIS 10 MG PO (16:18)
== END 2024-11-03 16:43 | disposition home or self-care (01) | DRG 176 ==
LOC: 3 WEST ACU 18:12
PROVIDERS: Physician Assistant; Registered Nurse; ADMITTING PHYSICIAN Internal Medicine; ATTENDING PHYSICIAN Internal Medicine; CONSULT PHYSICIAN Internal Medicine; EMERGENCY PHYSICIAN Student in an Organized Health Care Education/Training Program; FAMILY PHYSICIAN Family Medicine
DX: I26.99 Other pulmonary embolism without acute cor pulmonale (principal); M79.89 Other specified soft tissue disorders; K63.5 Polyp of colon; N20.0 Calculus of kidney; K76.89 Other specified diseases of liver
CPT/HCPCS: 71275; 80053; 83880; 84484; 85025; 85027; 85730; 93005; 93306; 96374; 96376; 99285; Q9967

== ENCOUNTER → 2025-04-27 06:37 | Outpatient (REF) | payer OTHER, SELFPAY | LOC: RAD 06:37 | PROVIDERS: ATTENDING PHYSICIAN Internal Medicine Cardiovascular Disease; FAMILY PHYSICIAN Family Medicine | DX: I51.7 Cardiomegaly (principal); I77.819 Aortic ectasia, unspecified site; I26.94 Multiple subsegmental thrombotic pulmonary emboli without acute cor pulmonale | CPT/HCPCS: 76770 ==

== ENCOUNTER → 2025-04-28 08:03 | Outpatient (REF) | payer OTHER, SELFPAY | LOC: HWRCS 08:03 | PROVIDERS: ATTENDING PHYSICIAN Internal Medicine Cardiovascular Disease; FAMILY PHYSICIAN Family Medicine | DX: I26.94 Multiple subsegmental thrombotic pulmonary emboli without acute cor pulmonale (principal) | CPT/HCPCS: 93306 ==